=== PATIENT | male | born 1955 | race American Indian/Alaskan Native ===

== ENCOUNTER 2020-02-01 08:54 | Outpatient (CLI) | payer MEDICARE, OTHER, SELFPAY ==
--- NOTE | 2020-02-01 09:02 | CT_ITS ---
WS: [id number] CT scan of the chest With IV contrast, CT scan of the abdomen and pelvis With IV contrast and oral contrast. Additional two-dimensional coronal and sagittal reconstruction was performed. Clinical Data: COLON CANCER Comparison: None. DLP: 2510.[address] scans at [facility] use at least one of these dose optimization techniques: automat ed exposure control; mA and/or kV adjustment per patient size (includes targeted exams where dose is matched to clinical indication); or iterative reconstruction. Findings: Chest: No nodules, masses or effusions are seen. The heart size is normal with no pericardial effusion. No pneumonia or pneumothorax is present. The pulmonary arterial system and thoracic aorta demonstrate no abnormalities or dilatations. The tra yessi bifurcates normally into the bronchi. The thyroid gland shows normal enhancement. There is no axillary or significant mediastinal adenopathy. The bony thorax shows no metastatic lesio ns. There is minimal degenerative change of the thoracic vertebral bodies. Abdomen/pelvis: The liver, gallbladder, spleen, adrenal glands and pancreas are normal. The kidneys show equal bilateral contrast excretion with small bilateral cortical cysts. No masses, h ydronephrosis or renal calculi are seen. No hydroureter is present.. The abdominal aorta is normal in size. No diverticulitis is seen. The patient has had a right hemicolectomy. Oral contrast is in the small b owel and colon, and there is no bowel dilatation. The bladder is unremarkable. The prostate is enlarged with central calcifications. No inguinal hernia is seen. The lumbar spine, pelvis and hips are unremarkable. CT/CT chest abd pel w con* Impression: 1. Negative for acute cardiopulmonary disease. 2. Negative for acute intra-abdominal or pelvic abnormalities. 3. Status post right hemicolectomy.
[2020-02-01] MEDS: iohexol 300 mg/mL 50 mL Btl PO (09:12)
[2020-02-01 10:54] LABS: Glomerular Filtration Rate 74.8 mL/min (90-130)
[2020-02-01] MEDS: iohexol 300 mg/mL 100 mL Btl IV (11:08)
== END 2020-02-01 08:55 | disposition home or self-care (01) ==
PROVIDERS: PCP Internal Medicine Medical Oncology; Visit Provider Internal Medicine Medical Oncology
DX: C18.2 Malignant neoplasm of ascending colon (principal)
CPT/HCPCS: 71260; 74177; 82565; Q9967

== ENCOUNTER → 2022-02-10 08:41 | Outpatient (BNVA) | payer MEDICARE, OTHER, SELFPAY | PROVIDERS: PCP Internal Medicine Medical Oncology; Visit Provider Orthopaedic Surgery | DX: M25.511 Pain in right shoulder (principal); M25.512 Pain in left shoulder | CPT/HCPCS: 73030; 99204 ==

== ENCOUNTER 2024-08-27 05:00 | Outpatient (RCR) | payer MEDICARE, OTHER, SELFPAY | END 2024-09-25 23:59 | disposition home or self-care (01) | LOC: APT 05:00 | PROVIDERS: PCP Internal Medicine Medical Oncology; Visit Provider Family Medicine | DX: M19.012 Primary osteoarthritis, left shoulder (principal) | CPT/HCPCS: 97110; 97140; 97161; 97530 ==

== ENCOUNTER 2024-09-26 05:00 | Outpatient (RCR) | payer MEDICARE, OTHER, SELFPAY | END 2024-10-26 23:59 | disposition home or self-care (01) | LOC: APT 05:00 | PROVIDERS: PCP Internal Medicine Medical Oncology; Visit Provider Family Medicine | DX: M19.012 Primary osteoarthritis, left shoulder (principal) | CPT/HCPCS: 97110; 97140; 97162; 97530 ==

== ENCOUNTER 2024-09-26 05:00 | Outpatient (RCR) | payer MEDICARE, OTHER, SELFPAY | END 2024-10-26 23:59 | disposition home or self-care (01) | LOC: APT 05:00 | PROVIDERS: PCP Internal Medicine Medical Oncology; Visit Provider Family Medicine | DX: Z47.89 Encounter for other orthopedic aftercare (principal) | CPT/HCPCS: 97110; 97140; 97530 ==

== ENCOUNTER 2024-10-27 05:00 | Outpatient (RCR) | payer MEDICARE, OTHER, SELFPAY | END 2024-11-21 09:33 | disposition home or self-care (01) | LOC: APT 05:00 | PROVIDERS: PCP Internal Medicine Medical Oncology; Visit Provider Family Medicine | DX: M19.012 Primary osteoarthritis, left shoulder (principal) | CPT/HCPCS: 97110; 97530 ==

== ENCOUNTER 2024-10-27 05:00 | Outpatient (RCR) | payer MEDICARE, OTHER, SELFPAY | END 2024-11-26 23:59 | disposition home or self-care (01) | LOC: APT 05:00 | PROVIDERS: PCP Internal Medicine Medical Oncology; Visit Provider Family Medicine | DX: Z47.89 Encounter for other orthopedic aftercare (principal) | CPT/HCPCS: 97110; 97112 ==

== ENCOUNTER 2024-10-30 11:45 | Emergency (ER) | payer MEDICARE, OTHER, SELFPAY ==
--- OUTSIDE RECORDS SUMMARY | 2024-10-30 11:49 | XMS_ITS | Clinical Summary ---
Author Organization [facility] Address [address] [place] [address] Phone Care Team Providers Care Gate Technician Name Role Phone Bakari Eden MD Primary Care Provider [phone] Allergies No known active allergies Medications multivitamin (DAILY-JORDIN) tablet Take 1 Tablet by mouth daily. Active Active Problems Patient Care Coordination No te Formatting of this note migh t be different from the original. On 02/17/2016 patient declined survivorship. Aristeo PICKETT Problem Noted Date Diagnosed Date Type III open fracture of left tibia and fibula 01/13/2024 Diverticulosis of large intestine without hemorr palomo 03/11/2016 Lichen simplex chronicus 03/04/2016 History of pulmonary embolism 03/04/2016 Personal history of DVT (deep vein thrombosis) 1 05/05/2015 Multiple lipomas 03/04/2016 Bilateral hearing loss 03/04/2016 Iron deficiency anemia 07/22/2015 Malignant neoplasm of ascending colon 04/30/2015 Pulmonary nodule, right 04/30/2015 Overview (04/30/2015): Recommend repeat CT scan in 6-12 months (09/2015-03/2016) Pulmonary embolism without acute cor pulmonale Resolved Problems Problem Noted Date Diagnosed Date Resolved Date Presence of IVC filter 07/05/201503/04 Colonic mass 04/20/2015 03/04/2016 Acute deep vein thrombosis ( DVT) of iliac vein of left lower extremity 04/19/2015 03/04/2016 Acute pulmonary embolism 04/19/201509/2015 Acute blood loss anemia 04/19/2015 12/0 09/2015 Hypocalcemia 04/19/2015 03/04/2016 Microcytic anemia 03/04/2016 Acute deep vein thrombosis ( DVT) of femoral vein of left lower extremity 03/04/2016 Encounters Date Type Department Care Team Description 10/11/2024 External Device Data STL ABSTRACTION Provider, Abstract 10/11/2024 External Device Data ST[facility] ABSTRACTION Provider, Abstract 10/10/2024 External Device Data ST[facility] ABSTRACTION Provider, Abstract 09/19/2024 External Device Data ST[facility] ABSTRACTION Provider, Abstract 08/08/2024 External Device Data ST[facility] ABSTRACTION Provider, Abstract 08/08/2024 External Device Data ST[facility] ABSTRACTION Provider, Abstract 08/01/2024 External Device Data STL ABSTRACTION Provider, Abstract from Last 3 Months Immunizations Immunization Administration Dates Next Due (ADACEL/BOOSTRIX)(10 YR UP) TDAP VACCINE, 0.5ML, IM 01/12/2024 Family History Medical History Relation Name Comments Cancer Daughter basal cell Healthy Daughter Other Father old age Colon Cancer Mother Relation Name Status Comments Brother Alive Daughter Father Mother Sister Alive Social History Tobacco Use Types Packs/Day Years Used Date Smoking Tobacco: Never Passive Smoke Exposure: Past Smokeless Tobacco: Never Tobacco Cessation:Counseling Given: No Alcohol Use Standard Drinks/Week Comments Never 0 (1 standard drink = 0.6 oz pur e alcohol) history of social etoh Sex and Gender Information Value Date Recorded Sex Assigned at Not on file 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 Gender Identity Not on file Sexual Orientation Not on file Last Filed Vital Signs Vital Sign Reading Time Taken Comments Blood Pressure 126/63 01/14/2024 7:19 PM CDT Pulse 97 01/14/2024 7:19 PM CDT Temperature 37.9 C (100.2 F) 01/14/2024 7:19 PM CDT Respiratory Rate 15 01/14/2024 7:19 PM CDT Oxygen Saturation 97% 01/14/2024 7:19 PM CDT Inhaled Oxygen Concentration - - Weight 101.2 kg (223 lb 0.6 oz) 01/14/2024 3:17 AM CDT Height 185.4 cm (6' 1 ) 01/12/2024 9:20 PM CDT Body Mass Index 29.43 01/12/2024 9:20 PM CDT Plan of Treatment Health Maintenance Due Date Last Done Comments Traditional Medicare (ACO) A nnual Wellness Visit 1974 PNEUMOCOCCAL VACCINE 50+ YEA RS (1 of 1 - PCV) 07/21/2003 ZOSTER VACCINE (1 of 2) 07/21/2003 COLORECTAL SCREENING 03/11/2019 03/11/2016, 04/20/19 16 INFLUENZA VACCINE (#1) 2024 RSV VACCINE (60+ or ) (1 - 1-dose 75+ series) 2028 DTAP/TDAP/TD VACCINES (2 - Td or Tdap) 01/11/2034 Medical Devices Implanted Type Area Android Software Engineer Device Identifier Shelf Expiration Date Model / Serial / Lot Plate 3.5 Lcp 10 223.601 - [id number] Implanted:Qty: 1 on 01/12/2024 by Froy Lopez MD at [facility] Plate Left: [employer]ia [employer]PUY SYNTHES 223.601 / / Screw Cortex Slftp 3.5x26mm 204.826 - [id number] Implanted:Qty: 1 on 01/12/2024 by Froy Lopez MD at [facility] Screw Left: [employer]ia [employer]PU[employer] SY[employer]ES 204.826 / / Screw Cortex Slftp 3.5x30mm 204.830 - [id number] Implanted:Qty: 1 on 01/12/2024 by Froy Lopez MD at [facility] Screw Left: [employer]PU[employer]ES 204.830 / / Screw Cortex Slftp 3.5x30mm 204.830 - [id number] Implanted:Qty: 1 on 01/12/2024 by Froy Lopez MD at [facility] Screw Left: [employer] DEPU[employer] SYN[employer]ES 204.830 / / Screw Cortex Slftp 3.5x34mm 204.834 - [id number] Implanted:Qty: 1 on 01/12/2024 by Froy Lopez MD at [facility] Screw Left: Tib[employer]PU[employer] SYN[employer]ES 204.834 / / Screw Canc Ft 4x35mm 206.035 - [id number] Implanted:Qty: 1 on 01/12/2024 by Froy Lopez MD at [facility] Screw Left: [employer]ES 206.035 / / Screw Canc Ft 4x40mm 206.040 - [id number] Implanted:Qty: 1 on 01/12/2024 by Froy Lopez MD at [facility] Screw Left: [employer] DE[employer]ES 206.040 / / Explanted Type Area Android Software Engineer Device Identifier Shelf Expiration Date Model / Serial / Lot Filter Vc Gillespie Fem [id number] - [id number] Implanted:Qty: 1 on 04/22/2015 by Wing Mays MD at [facility] Explanted:Qty: 1 on 07/18/2015 by Wing Mays MD at [facility] Other N/A: Vena Cava [employer] 11/26/2017 [id number] / / [id number] Insurance MEDICARE PART A AND B [facility] Advance Directives For more information, please contact: [phone] * Full Code (Latest Code Status on File) Date Activated Date Inactivated Comments 01/12/2024 5:03 PM 01/15/2024 12:57 AM * Full Code Date Activated Date Inactivated Comments 03/11/2016 8:31 AM 03/11/2016 1:09 PM * Full Code Date Activated Date Inactivated Comments 07/18/2015 9:46 AM 07/18/2015 2:16 PM * Full Code Date Activated Date Inactivated Comments 07/18/2015 7:02 AM 07/18/2015 9:46 AM * Full Code Date Activated Date Inactivated Comments 05/28/2015 8:28 PM 06/01/2015 4:08 PM Care Teams Gate Technician Relationship Specialty [place] [id number] [facility] [address] [place] [address] PCP - General Family Practice 06/03/15
--- OUTSIDE RECORDS SUMMARY | 2024-10-30 11:49 | XMS_ITS ---
Author Organization [facility] Address [address] [place] [address] Phone Care Team Providers Care Director Safety Name Role Phone Bakari Eden MD Primary Care Provider [phone] Active Problems Patient Care Coordination No te [...] (09/2015-03/2016) Pulmonary embolism without acute cor pulmonale Current Treatment and Therapy Plans No current plan information found. Past Treatment and Therapy Plans ONCOLOGY TREATMENT Plan Name Start Date Discontinue Date Treatment Medications Discontinue Reason Plan Provider Cycles OP ONC COLON_CA PECITABI NE_OXALI PLATIN 06/22/2015 03/03/2016 capecitabine (XELODA)oxalipla tin (ELOXATIN) IVPB Other Harry Vigil MD 7 of 8 cycles completed Lifetime Dose Tracking * Chemical Lifetime Dose Automatic Entry Manual Entr y Effective Dose 61.3 mSv 61.3 mSv 0 mSv Total DLP 4,666.06 DLP 4,666.06 DLP 0 DLP CTDIvol Max 59.6 mGy 59.6 mGy 0 mGy CTDIvol Min 27.5 mGy 27.5 mGy 0 mGy Resolved Problems Problem Noted Date Diagnosed Date Resolved Date Presence of IVC filter 07/05/201503/04 Colonic mass 04/20/2015 03/04/2016 Acute deep vein thrombosis ( DVT) of iliac vein of left lower extremity 04/19/2015 03/04/2016 Acute pulmonary embolism 04/19/201509/2015 Acute blood loss anemia 04/19/201509/2015 Hypocalcemia 04/19/2015 03/04/2016 Microcytic anemia 03/04/2016 Acute deep vein thrombosis ( DVT) of femoral vein of left lower extremity 03/04/2016
--- NOTE | 2024-10-30 12:03 | XR_ITS ---
WS: [id number] XR chest 1V portable [id number] REASON FOR EXAM: sob FINDINGS: Moderate tortuosity and ectasia of the thoracic aorta. Normal heart size. Calcified granulomatous disease bilaterally. No acute pulmonary parenchymal or pleural abnormality. Moderate degenerative spondylosis in the mid and lower thoracic spine. Moderate osteoarthritis in both shoulders. XR/XR chest 1V portable [id number] IMPRESSION: No acute chest abnormality.
--- NOTE | 2024-10-30 12:03 | ECG_ITS ---
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
[2024-10-30 12:06] VITALS: BP 157/89; PULSE 93; RESP 18; TEMP 36.7; O2SAT 93; BMI 31.8
[2024-10-30 12:47] VITALS: BP 147/89; O2SAT 99
--- NOTE | 2024-10-30 12:47 | W.ED.SOB ---
HPI - SOB/Dyspnea General: Chief Complaint: Shortness of Breath/Dyspnea Stated Complaint: sob, feeling weird Time Seen by Provider: 10/30/24 12:28 Source: patient Mode of arrival: ambulatory Limitations: no limitations History of Present Illness: HPI Narrative: 69-year-old male states he been having shortness of breath last 2 days he states that he just feels like at times he cannot get a deep breath then he denies any severe dyspnea he has some worsening when he lays flat as well. He had no cough no fever denies any chest pain pulse ox here has been normal. No history of COPD or CHF Associated symptoms: Deny abdominal pain, chest pain, fever(s), nausea or vomiting Related Data Home Medications ?Medication ?Instructions ?Recorded ?Confirmed apixaban 5 mg tablet (Eliquis) 5 mg PO BID 08/17/24 10/30/24 diltiazem HCl 120 mg 120 mg PO BID 08/17/24 10/30/24 capsule,extended release 24 hr Allergies Allergy/AdvReac Type Severity Reaction Status Date / Time No Known Allergies Allergy Verified 09/21/24 09:47 Review of Systems Const: Denies: fever(s), chills, body aches or change in appetite Eyes: Denies: blurry vision or eye discomfort ENMT: Denies: throat pain or dental pain Card: Denies: chest pain Resp: Reports: dyspnea GI: Denies: abdominal pain, nausea, vomiting or diarrhea Musc: Denies: neck pain or back pain Skin/Breast: Denies: rash Neuro: Denies: headache(s) PFSH ED PFSH: Social History Smoking and tobacco/nicotine status: never used tobacco/nicotine Physical Exam Const: COMMON NORMALS: no acute distress, patient oriented x3 and healthy appearing HENMT: COMMON NORMALS: normocephalic and atraumatic HEAD & SCALP: normocephalic and atraumatic Eye: COMMON NORMALS: Equal, round and reactive pupils present and EOMs intact bilaterally PUPIL: Yes Equal, round and reactive pupils present Neck/C-Spine: COMMON NORMALS: full ROM and supple Chest: COMMONS NORMALS: normal inspection of the chest and normal palpation of entire chest wall Resp: COMMON NORMALS: normal respiratory effort, No retractions, No use of accessory muscles and clear to auscultation bilaterally AUSCULTATION: clear to auscultation bilaterally Cardio: COMMON NORMALS: regular rate, regular rhythm and No murmurs present (Cardio) RATE: regular rate RHYTHM: regular rhythm GI: COMMON NORMALS: Normal to inspection, nondistended, normoactive bowel sounds present, Soft to palpation, non-tender and no masses PALPATION: Yes Soft to palpation Extremity: COMMON NORMALS: normal to inspection and full ROM Neuro: COMMON NORMALS: patient oriented x3, moves all extremities and no focal motor deficits Psych: COMMON NORMALS: mental status grossly normal, Normal thought process present and cooperative THOUGHT PROCESS: Normal thought process present Skin: COMMON NORMALS: no rashes or lesions noted and no wounds GENERAL SKIN EXAM: no rashes or lesions noted Course Vital Signs: Vital signs: Vital Signs Temperature 98.1 F 10/30/24 12:06 Pulse Rate 74 10/30/24 14:23 Respiratory Rate 12 10/30/24 14:23 Blood Pressure 152/95 10/30/24 14:23 Pulse Oximetry 100 10/30/24 14:23 Oxygen Delivery Me thod Room Air 10/30/24 14:23 MDM - SOB/Dyspnea Medical Decision Making Patient presents here with dyspnea he has been well-appearing here in no distress CT showed no signs of PE or pneumonia blood works normal he stable for discharge follow-up with his PCP return if worsening. Medical Records I reviewed the patient's medical records. Lab Data I reviewed the patient's lab results. 10/30/24 12:44 10/30/24 12:44 Labs/Radiology: Radiology Impressions Chest X-Ray 10/30/24 12:03 IMPRESSION: No acute chest abnormality. Chest CTA 10/30/24 13:50 IMPRESSION: 1. No pulmonary embolism. 2. Mild interstitial edema. 3. No pericardial or pleural effusions. 4. No mediastinal or hilar adenopathy. 5. Small hiatal hernia. Laboratory Results WBC 11.85 10^3/uL (3.29-11.43) H 10/30/24 12:44 RBC 5.32 10^6/uL (3.85-5.65) 10/30/24 12:44 Hgb 14.60 g/dL (11.27-16.99) 10/30/24 12:44 Hct 45.6 % (37-53) 10/30/24 12:44 MCV 85.7 fl (82-101) 10/30/24 12:44 MCH 27.4 pg (27-33) 10/30/24 12:44 MCHC 32.0 g/dL (30-55) 10/30/24 12:44 RDW 17.5 % (12.1-15.1) H 10/30/24 12:44 Plt Count 335 10^3/cmm (157-399) 10/30/24 12:44 MPV 9.7 fL (7.4-10.4) 10/30/24 12:44 Neut % (Auto) 81.8 % 10/30/24 12:44 Lymph % (Auto) 10.5 % 10/30/24 12:44 Sutton % (Auto) 6.1 % 10/30/24 12:44 Eos % (Auto) 0.5 % 10/30/24 12:44 Baso % (Auto) 0.7 % 10/30/24 12:44 Neut # (Auto) 9.70 10^3/uL (1.8-7.7) H 10/30/24 12:44 Lymph # (Auto) 1.2 10^3/uL (0.8-4.8) 10/30/24 12:44 Sutton # (Auto) 0.7 10^3/uL (0.2-0.9) 10/30/24 12:44 Eos # (Auto) 0.1 10^3/uL (0.0-0.8) 10/30/24 12:44 Baso # (Auto) 0.1 10^3/uL (0.0-0.1) 10/30/24 12:44 Nucleated RBC % (auto) 0 % 10/30/24 12:44 Nucleated RBCs # 0.0 /100WBC 10/30/24 12:44 D-Dimer 1.23 ug/mLFEU (0-0.59) H 10/30/24 12:44 Sodium 141 mmol/L (136-145) 10/30/24 12:44 Potassium 4.4 mmol/L (3.5-5.1) 10/30/24 12:44 Chloride 106 mmol/L (98-107) 10/30/24 12:44 Carbon Dioxide 23 mmol/L (22-29) 10/30/24 12:44 Anion Gap 16.4 (5-19) 10/30/24 12:44 BUN 18 mg/dL (8-23) 10/30/24 12:44 Creatinine 1.2 mg/dL (0.7-1.2) 10/30/24 12:44 GFR Calculation Not Reportable 10/30/24 12:44 Glucose 111 mg/dL (65-115) 10/30/24 12:44 Calculated Osmolality 295 mOsm/kg (285-295) 10/30/24 12:44 Calcium 8.9 mg/dL (8.5-10.5) 10/30/24 12:44 Total Bilirubin 0.4 mg/dL (0.15-1.2) 10/30/24 12:44 AST 15 U/L (0-40) 10/30/24 12:44 ALT 16 U/L (0-41) 10/30/24 12:44 Alkaline Phosphatase 143 U/L (40-130) H 10/30/24 12:44 NT-Pro-B Natriuret Pep 39 pg/mL (0-125) 10/30/24 12:44 Total Protein 7.2 g/dL (6.6-8.7) 10/30/24 12:44 Albumin 4.1 g/dL (3.5-5.2) 10/30/24 12:44 Globulin 3.1 g/dL (1.3-4.6) 10/30/24 12:44 All radiology interpretation(s) finalized by discharge EKG Data EKG 1: I personally reviewed and interpreted this EKG as follows: EKG Interpretation Date: 10/30/24 EKG interpretation time: 13:53 Interpretation: nsr hr [address] elevation qrs 97 qtc 440 Discharge Plan Discharge Patient Disposition: Home Clinical Impression: Dyspnea Condition: Stable Prescriptions: No Action diltiazem HCl 120 mg capsule,extended release 24hr 120 mg PO BID Eliquis 5 mg tablet 5 mg PO BID Discharge Orders: Discharge ED (Routine); Ordered 10/30/24 Ordered By: Juanjose Sims Referrals: Shiraz Thomas III, MD [Primary Care Provider, Oncology] Discharge Diet: Advance as tolerated Discharge Activity: Resume usual activity Patient Instructions: Dyspnea (ED) Print Language: Gambian Coding Level of Care Code ED Lozenge Dough Mixer for Amira Garcia
[2024-10-30 13:01] LABS: Hematocrit 45.6 % (37-53); Hemoglobin 14.60 g/dL (11.27-16.99); Mean Corpuscular HGB Conc 32.0 g/dL (30-55); Mean Corpuscular Hemoglobin 27.4 pg (27-33); Mean Corpuscular Volume 85.7 fl (82-101); Nucleated Red Blood Cells % 0 %; Platelet Count 335 10^3/cmm (157-399); Red Blood Count 5.32 10^6/uL (3.85-5.65); White Blood Count 11.85 10^3/uL (3.29-11.43)
[2024-10-30 13:14] VITALS: BP 136/49; PULSE 58; RESP 16; O2SAT 98
[2024-10-30 13:34] LABS: Alanine Aminotransferase 16 U/L (0-41); Albumin Level 4.1 g/dL (3.5-5.2); Alkaline Phosphatase 143 U/L (40-130); Anion Gap 16.4 (5-19); Aspartate Amino Transferase 15 U/L (0-40); Blood Urea Nitrogen 18 mg/dL (8-23); Calcium 8.9 mg/dL (8.5-10.5); Carbon Dioxide 23 mmol/L (22-29); Chloride 106 mmol/L (98-107); Creatinine Clr Calc Pharmacy 71.2342; Globulin 3.1 g/dL (1.3-4.6); Glucose 111 mg/dL (65-115); NT Pro B Type Natriuretic Pept 39 pg/mL (0-125); Osmolality Calculated 295 mOsm/kg (285-295); Potassium 4.4 mmol/L (3.5-5.1); Sodium 141 mmol/L (136-145); Total Protein 7.2 g/dL (6.6-8.7)
--- NOTE | 2024-10-30 13:50 | CT_ITS ---
WS: [id number] CT CHEST ANGIOGRAPHY WITH REFORMATS HISTORY: sob TECHNIQUE: Contiguous axial images are obtained through the chest during arterial injection of intravenous contrast. Images are reconstructed to evaluate the pulmonary arteries. MIP imaging also reviewed. All CT scans at [facility] use at least one of these dose optimization techniques: automated exposure control; mA and/or kV adjustment per patient size (includes targeted exams where dose is matched to clinical indication); or iterative reconstruction. CONTRAST: Omnipaque 350; 100 mL IV. DLP: 467.28 mGy.cm COMPARISON: 02/01/2020 Good opacification of the pulmonary arteries. No pulmonary embolism identified. Normal sized pulmonary arteries. Mild atherosclerosis aorta. No aneurysm. Mild LEFT heart enlargement. No RIGHT heart strain. No pericardial or pleural effusions. Mild hazy attenuation throughout both lungs probably related to mild edema. There is no consolidation or mass. No mediastinal or hilar adenopathy. Small hiatal hernia. Mild hepatic steatosis. Gallbladder is negative. Upper pole LEFT renal cyst 1.8 x 1.8 cm. No acute rib fractures. Mild increased thoracic kyphosis. CT/CT angio chest PE protcl [id number] IMPRESSION: 1. No pulmonary embolism. 2. Mild interstitial edema. 3. No pericardial or pleural effusions. 4. No mediastinal or hilar adenopathy. 5. Small hiatal hernia.
[2024-10-30] MEDS: iohexol 350 mg/mL 500 mL Btl (per mL) IV (14:12)
[2024-10-30 14:23] VITALS: BP 152/95; PULSE 74; RESP 12; O2SAT 100
[2024-10-30 15:05] VITALS: BP 143/82; PULSE 75; O2SAT 93
== END 2024-10-30 15:06 | disposition home or self-care (01) ==
PROVIDERS: Emergency Provider Emergency Medicine; PCP Internal Medicine Medical Oncology
DX: R06.00 Dyspnea, unspecified (principal); Z79.01 Long term (current) use of anticoagulants
CPT/HCPCS: 71045; 71275; 80053; 83880; 85025; 85378; 93005; 99285

== ENCOUNTER 2024-11-15 11:51 | Outpatient (CLI) | payer MEDICARE, OTHER, SELFPAY ==
--- NOTE | 2024-11-15 12:15 | MR_ITS ---
WS: [id number] MRI LEFT SHOULDER NONCONTRAST TECHNIQUE: Sagittal T2, coronal T1, T2 and proton density imaging. Axial gradient PDE imaging. CLINICAL INFORMATION: M19.012 - Primary osteoarthritis, left shoulder COMPARISON: None. FINDINGS: Moderate to advanced degenerative arthritis AC joint. Subacromial spurring. Impingement on the distal supraspinatus. Chronic thinning of the rotator cuff. Supraspinatus and infraspinatus appear intact. Normal teres minor. Subscapularis tendon is normal. Biceps tendon appears intact within the bicipital groove with slight medial subluxation along the proximal bicipital groove. Advanced degenerative narrowing of the glenohumeral articulation with hypertrophic spurring along the glenoid and humeral neck. Increased signal within the intra-articular biceps tendon compatible with tendinopathy. Chronic degenerative fraying of the glenoid labrum. MR/MR shoulder LT wo con* [id number] IMPRESSION: 1. Moderate to advanced arthritis AC joint. Moderate downsloping acromion with impingement on supraspinatus. Subacromial spurring. 2. Chronic thinning of the supraspinatus and infraspinatus. 3. Advanced degenerative narrowing glenohumeral articulation with hypertrophic spurring along the medial humeral neck and glenoid. Subchondral edema within t he bony glenoid. 4. Medial subluxation of the proximal biceps tendon along the bicipital groove . Biceps tendon appears intact. 5. Tendinopathy intra-articular biceps tendon with increased T2 signal.
== END 2024-11-15 11:52 | disposition home or self-care (01) ==
LOC: RAD 11:52
PROVIDERS: PCP Family Medicine; Visit Provider Family Medicine
DX: M19.012 Primary osteoarthritis, left shoulder (principal); M67.814 Other specified disorders of tendon, left shoulder
CPT/HCPCS: 73221

== ENCOUNTER 2025-02-14 10:25 | Emergency (ER) | payer MEDICARE, OTHER, SELFPAY ==
[2025-02-14 10:27] VITALS: BP 165/86; PULSE 93; RESP 18; TEMP 36.6; O2SAT 98; BMI 31.1
--- NOTE | 2025-02-14 10:32 | USCV_ITS ---
Virgilio Sagastume Age: 69 Gender: M : 1955 Exam Date: 02/14/2025 10:50 Ordering Phys: Juanjose Sims MD Technologist: KRISS Exam Location: [facility] Indication: LEFT LEG PAIN HISTORY: Lower extremity pain-LEFT, skin grafts from one year ago PROCEDURES: Venous duplex imaging was performed in only the left lower extremity. The following venous structures were evaluated: common femoral vein, profunda vein, proximal portion of the greater saphenous vein, superficial femoral vein, and the popliteal vein. In addition, the posterior tibial and peroneal trunk were evaluated. FINDINGS: There appears to be acute, occlusive DVT starting below the CFV and extending to the LEFT POP VEIN There appears to be acute occlusive thrombus inthe GSV starting at the knee and extending to mid left ankle Incidentally noted was a inguinal lymp node visualized at the level of the profunda vein CONCLUSIONS Acute occlusive DVT LEFT distal common femoral, femoral, and extending into popliteal vein Acute occlusive thrombus GSV at the knee and extending to mid ankle Prominent lymph node left groin non specific but may be reactive Dr. Sims notified at time of study by machine cloth examiner Alan Steven MD (Electronically Signed) Final Date: 14 February 2025 12:23 S
[2025-02-14 10:43] VITALS: BP 163/97; O2SAT 97
--- NOTE | 2025-02-14 10:46 | W.ED.EXTPRO ---
HPI - Extremity Problem General: Chief complaint: Extremity Injury, Lower Stated complaint: Left leg pain pos blood cloats Time Seen by Provider: 02/14/25 10:37 Source: patient Mode of arrival: ambulatory Limitations: no limitations History of Present Illness: 69-year-old male history of significant left lower leg injury a year ago required muscle and skin grafting. He states that over the last few days he been having some swelling to his left lower leg with some pain in his left upper leg and is concerned for DVT. States he has been sitting around a lot more lately. States he has some mild pain he rates to a 10 denies any fever. Denies any redness denies any new injury Related Data Home Medications ?Medication ?Instructions ?Recorded ?Confirmed diltiazem HCl 120 mg 120 mg PO BID 08/17/24 11/13/24 capsule,extended release 24 hr Previous Rx's ?Medication ?Instructions ?Recorded apixaban 5 mg tablet (Eliquis) 5 mg PO BID #60 tabs 02/14/25 apixaban 5 mg tablet (Eliquis) 10 mg (2 x 5 mg) PO BID 7 days #28 02/14/25 tabs Allergies Allergy/AdvReac Type Severity Reaction Status Date / Time No Known Allergies Allergy Verified 11/13/24 11:49 Review of Systems Musc: Reports: extremity swelling [facility] ED PFSH: Social History Smoking and tobacco/nicotine status: never used tobacco/nicotine Physical Exam Const: COMMON NORMALS: no acute distress, patient oriented x3 and healthy appearing HENMT: COMMON NORMALS: normocephalic and atraumatic HEAD & SCALP: normocephalic and atraumatic Neck/C-Spine: COMMON NORMALS: full ROM and supple Chest: COMMONS NORMALS: normal inspection of the chest Resp: COMMON NORMALS: normal respiratory effort Cardio: COMMON NORMALS: regular rate RATE: regular rate Extremity: COMMON NORMALS: full ROM NARRATIVE EXTREMITY EXAM: Slight swelling to left calf with tenderness distal pulses sensation intact no warmth to touch. Neuro: COMMON NORMALS: patient oriented x3, moves all extremities and no focal motor deficits Psych: COMMON NORMALS: mental status grossly normal, Normal thought process present and cooperative THOUGHT PROCESS: Normal thought process present Skin: COMMON NORMALS: no rashes or lesions noted and no wounds GENERAL SKIN EXAM: no rashes or lesions noted Course Vital Signs: Vital signs: Vital Signs Temperature 97.8 F 02/14/25 10:27 Pulse Rate 82 02/14/25 11:10 Respiratory Rate 18 02/14/25 10:27 Blood Pressure 160/87 02/14/25 11:10 Pulse Oximetry 99 02/14/25 11:10 Oxygen Delivery Me thod Room Air 02/14/25 10:27 MDM - Extremity (Nontraumatic) Medical Decision Making 69-year-old male who presented here with left leg swelling and pain differential includes cellulitis, arterial thrombosis, DVT. Patient here has no warmth no redness no signs of cellulitis. He has distal pulse intact no signs of arterial occlusion. Ultrasound did show DVT here. Will start him on Eliquis. I informed him of the ultrasound findings he is to follow-up with his PCP and return if worsening he understands agrees to plan. Medical Records I reviewed the patient's medical records. All radiology interpretation(s) finalized by discharge Discharge Plan Discharge Patient Disposition: Home Clinical Impression: DVT (deep venous thrombosis) Qualifiers: DVT location: lower extremity Affected thrombotic vein of extremity: unspecified vein of extremity Chronicity: acute Laterality: left Qualified Code(s): I82.402 - Acute embolism and thrombosis of unspecified deep veins of left lower extremity Condition: Stable Prescriptions: New Eliquis 5 mg tablet 10 mg PO BID 7 Days Qty: 28 0RF Eliquis 5 mg tablet 5 mg PO BID Qty: 60 0RF Rx Instructions: start after first week loading dose No Action diltiazem HCl 120 mg capsule,extended release 24hr 120 mg PO BID Discharge Orders: Discharge ED (Routine); Ordered 02/14/25 Ordered By: Juanjose Sims Referrals: Wing Macedo DO [Primary Care Provider, Family Practice] - 4-7 days Discharge Diet: Advance as tolerated Discharge Activity: Resume usual activity Patient Instructions: Deep Vein Thrombosis (ED) Print Language: [place] Coding Level of Care Code ED Supervisor Toy Assembly for Amira Garcia
[2025-02-14 11:10] VITALS: BP 160/87; PULSE 82; O2SAT 99
--- OUTSIDE RECORDS SUMMARY | 2025-02-14 13:38 | XMS_ITS ---
Author Organization [facility] Address [address] [place] [address] Phone Care Team Providers Care Well Logging Captain Name Role Phone Bakari Eden MD Primary Care Provider [phone] Active Problems Patient Care Coordination No te Formatting of this note migh t be different from the original. On 02/17/2016 patient declined survivorship. Aristeo RMA Problem Noted Date Diagnosed Date Type III [...]
--- OUTSIDE RECORDS SUMMARY | 2025-02-14 13:38 | XMS_ITS | Clinical Summary ---
Author Organization [facility] Address [address] [place] [address] Phone Care Team Providers Care Travel Pt Name Role Phone Bakari Eden MD Primary Care Provider [phone] Allergies No known active allergies Medications multivitamin [...] Encounters Date Type Department Care Team Description 01/09/2025 External Device Data [facility]STRACTION Provider, Abstract 01/02/2025 External Device Data [facility] Provider, Abstract 01/02/2025 External Device Data [facility] Provider, Abstract 12/12/2024 External Device Data [facility] Provider, Abstract 11/21/2024 External Device Data [facility] Provider, Abstract 11/14/2024 External Device Data [facility] Provider, Abstract [...] pur e alcohol) history of social etoh Feeling Safe Answer Date Recorded Are you in a relationship wi th someone who hurts you emotionally and/or physically? No 01/12/2024 Food Insecurity Answer Date Recorded Patient needs follow up regardin 07/21/2024 Transportation Needs Answer Date Record ed Patient needs follow up regardin 07/21/2024 Housing Stability Answer Date Recorded Social/Environmental Concerns No concerns Utility Needs Answer Date Recorded Patient needs follow up regardin 07/21/2024 Sex and Gender Information Value Date Recorded Sex Assigned at Not on file Legal Sex Male 5:32 PM [employer] Gender Identity Not on file Sexual [...] Tdap) 01/11/2034 Medical Devices Implanted Type Area [employer] Device Identifier Shelf Expiration Date Model / Serial / Lot Plate 3.5 Lcp 10 223.601 - [id number] Implanted:Qty: 1 on 01/12/2024 by Froy Lopez MD at [facility] Plate Left: [employer] SYNTHES 223.601 / / Screw Cortex Slftp 3.5x26mm 204.826 - [id number] Implanted:Qty: 1 on 01/12/2024 by Froy Lopez MD at [facility] Screw Left: [employer] 204.826 / / Screw Cortex Slftp 3.5x30mm 204.830 - [id number] Implanted:Qty: 1 on 01/12/2024 by Froy Lopez MD at [facility] Screw Left: [employer] 204.830 / / Screw Cortex Slftp 3.5x30mm 204.830 - [id number] Implanted:Qty: 1 on 01/12/2024 by Froy Lopez MD at [facility] Screw Left: [employer] 204.830 / / Screw Cortex Slftp 3.5x34mm 204.834 - [id number] Implanted:Qty: 1 on 01/12/2024 by Froy Lopez MD at [facility] Screw Left: [employer] 204.834 / / Screw Canc Ft 4x35mm 206.035 - [id number] Implanted:Qty: 1 on 01/12/2024 by Froy Lopez MD at [facility] Screw Left: [employer] 206.035 / / Screw Canc Ft 4x40mm 206.040 - [id number] Implanted:Qty: 1 on 01/12/2024 by Froy Lopez MD at [facility] Screw Left: [employer] 206.040 / / Explanted Type [employer] Device Identifier Shelf Expiration Date Model / Serial / Lot Filter Vc Odalis Fem [id number] - [id number] Implanted:Qty: 1 on 04/22/2015 by Wing Mays MD at [facility] Explanted:Qty: 1 on 07/18/2015 by Wing Mays MD at [facility] Other N/A: Vena Cava [employer] 11/26/2017 [id number] / / [id number] Insurance MEDICARE PART A AND B [facility] Advance Directives For more information, please contact: [phone] * Full Code (Latest Code Status on [...] 8:28 PM 06/01/2015 4:08 PM Care Teams Travel Pt Relationship Specialty [place] [id number] [facility] [address] [place] [address] [phone] PCP - General Family Practice 06/03/15
== END 2025-02-14 11:11 | disposition home or self-care (01) ==
PROVIDERS: Emergency Provider Emergency Medicine; PCP Family Medicine
DX: I82.412 Acute embolism and thrombosis of left femoral vein (principal); I82.432 Acute embolism and thrombosis of left popliteal vein; Z79.01 Long term (current) use of anticoagulants
CPT/HCPCS: 93971; 99284

== ENCOUNTER 2025-03-08 15:21 | Outpatient (CLI) | payer MEDICARE, OTHER, SELFPAY ==
--- NOTE | 2025-03-08 15:30 | USCV_ITS ---
Virgilio Sagastume Age: 69 Gender: M : 1955 Exam Date: 03/08/2025 15:45 Ordering Phys: Wing Macedo DO Technologist: [place] [facility] [place]: worsening blood clot symptoms HISTORY: DVT. PROCEDURES: Venous duplex imaging was performed in only the left lower extremity. Serial compression, augmentation maneuvers, and spectral Doppler flow evaluation were performed. FINDINGS: Left lower extremity: there is occlusive DVT of lt pop to prox FV . SVT of the GSV comparison 02/14/25 CONCLUSIONS Occlusive DVT LEFT proximal femoral vein to popliteal similiar to previous. DVT remains occlusive SVT of the Greater Saphenous vein 2.8 x 2.4 cm lymph node LEFT groin, non-specific but may be reactive Alan Steven MD (Electronically Signed) Final Date: 08 March 2025 16:15 S
== END 2025-03-08 15:22 | disposition home or self-care (01) ==
LOC: RAD 15:23
PROVIDERS: PCP Family Medicine; Visit Provider Family Medicine
DX: D68.59 Other primary thrombophilia (principal); I82.412 Acute embolism and thrombosis of left femoral vein; I82.432 Acute embolism and thrombosis of left popliteal vein; I82.812 Embolism and thrombosis of superficial veins of left lower extremity; R59.0 Localized enlarged lymph nodes
CPT/HCPCS: 93971